=== PATIENT | female | born 1975 | race Two or more races ===

== ENCOUNTER 2017-06-04 17:30 | Outpatient (AMBR) | payer MEDICARE, MEDICAID, SELFPAY ==
--- NOTE | 2017-04-30 14:24 | PT.OIERPT ---
PT OP Initial Eval Patient Information Visit Reasons: BILATERAL CARPAL TUNNEL PAIN, Carpal tunnel syndrome Treatment Dx #1: B wrist pain Start of Care: 04/30/17 Date of Onset: 01/03/17 Initial Assessment Subjective Pt is 41 yr old divehi speaking female s/p B carpal tunnel sx in December of last year. She c/o L wrist numbness in the finger pads during the day and intense numbness at night. She no longer has the hand cramps and pain. The R hand is not near as numb as the L. Today she has the N/T in the L hand. 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 PLOF: pt has Hx of RA and finger deformities and about 3 yrs ago prior to wrist pain onset she had better use of hands and wrists with HH chores. PMH: Hypothyroidism, RA, anemia, peripheral neuropathy, B carpal tunnel Pt goal: less N/T of L wrist Objective L wrist AROM: Flexion: 55 deg Extension: 34 deg Radial dev: 25 deg Ulnar dev: 15 deg R breakfast host: 40 deg, L breakfast host 34 deg Assessment Pt presentation consistent with post op B carpal tunnel with hypertrophic scarring of L wrist incision that is likely impinging on median nerve. Numbness is in median n. distribution. Pt has limited digit and wrist ROM and strength due to RA deformities. Pt has fair rehab potential if incision can be mobilized to reduce numbness. Eval followed by [facility] and she was given foam ball for home use breakfast host strength. Short Term and Care Home Goals 1. Independent with HEP 2. Reduced N/T in L hand by 50% 3. Improved breakfast host strength to 45 lbs B Treatment Plan 90 day POC in order to complete visits. Pt requires skilled therapy in order to increase strength, decrease pain and address aforementioned impairments. Rx may consist of Therex, Manual therapy, Neuromuscular re-education, Modalities as indicated-moist heat packs, ice packs, estim Frequency and Duration 2x a week for 6 weeks Certification Dates: 04/30/17 to 07/29/17 Office Procedures PT Outpatient G-Codes Date of Service PT Date of Service: 04/30/17 G-Codes Changing & Maintaining Body Post Body Position Current Status G-Code: G8981: CK 40-60% Body Position Goal Status G-Code: G8982: CJ 20-40% PT Procedures PT Date of Service: 04/30/17 OP PT Eval High Complex 45 minutes: Yes Carpal Tunnel History of Present Illness Carpal Tunnel Imaging Result: No Data to Display
--- NOTE | 2017-04-30 14:32 | PTNOTE_ITS ---
PT OP Initial Eval Patient Information Visit Reasons: BILATERAL CARPAL TUNNEL PAIN, Carpal tunnel syndrome Treatment Dx #1: B wrist pain Start of Care: 04/30/17 Date of Onset: 01/03/17 Initial Assessment Subjective Pt is 41 yr old [place] speaking female s/p B carpal tunnel sx in December of last year. She c/o L wrist numbness in the finger pads during the day and intense numbness at night. She no longer has the hand cramps and pain. The R hand is not near as numb as the L. Today she has the N/T in the L hand. 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 PLOF: pt has Hx of RA and finger deformities and about 3 yrs ago prior to wrist pain onset she had better use of hands and wrists with HH chores. PMH: Hypothyroidism, RA, anemia, peripheral neuropathy, B carpal tunnel Pt goal: less N/T of L wrist Objective L wrist AROM: Flexion: 55 deg Extension: 34 deg Radial dev: 25 deg Ulnar dev: 15 deg R fine patcher: 40 deg, L fine patcher 34 deg Assessment Pt presentation consistent with post op B carpal tunnel with hypertrophic scarring of L wrist incision that is likely impinging on median nerve. Numbness is in median n. distribution. Pt has limited digit and wrist ROM and strength due to RA deformities. Pt has fair rehab potential if incision can be mobilized to reduce numbness. Eval followed by [facility] and she was given foam ball for home use fine patcher strength. Short Term and Penitentiary Goals 1. Independent with HEP 2. Reduced N/T in L hand by 50% 3. Improved fine patcher strength to 45 lbs B Treatment Plan 90 day POC in order to complete visits. Pt requires skilled therapy in order to increase strength, decrease pain and address aforementioned impairments. Rx may consist of Therex, Manual therapy, Neuromuscular re-education, Modalities as indicated-moist heat packs, ice packs, estim Frequency and Duration 2x a week for 6 weeks Certification Dates: 04/30/17 to 07/29/17 Office Procedures PT Outpatient G-Codes Date of Service PT Date of Service: 04/30/17 G-Codes Changing & Maintaining Body Post Body Position Current Status G-Code: G8981: CK 40-60% Body Position Goal Status G-Code: G8982: CJ 20-40% PT Procedures PT Date of Service: 04/30/17 OP PT Eval High Complex 45 minutes: Yes Carpal Tunnel History of Present Illness Carpal Tunnel Imaging Result: 2 No Data to Display
--- NOTE | 2017-05-15 18:11 | PT.ODAYNRPT ---
PT Outpatient Daily Note Date of Service: May 15, 2017 OP Daily Note Visit Reasons: BILATERAL CARPAL TUNNEL PAIN Outpatient Physical Therapy Treatment Date: 05/15/17 Subjective: Last night increased numbness and tingling in L hand Objective: See F/S for therex MT: STM to L incision x10' Assessment: L wrist flexion increases N/T in L hand as well as pressure over incision. Plan: Continue per POC Length of Time (minutes) of Treatment: 30 Minutes Office Procedures PT Outpatient G-Codes Date of Service PT Date of Service: 04/30/17 G-Codes Changing & Maintaining Body Post Body Position Current Status G-Code: G8981: CK 40-60% Body Position Goal Status G-Code: G8982: CJ 20-40% PT Procedures PT Date of Service: 04/30/17 OP PT Eval High Complex 45 minutes: Yes PT Procedures PT Date of Service: 05/15/17 Therapeutic Exercise 15 minutes: Yes Manual Acoustic Engineer 15 minutes: Yes
--- NOTE | 2017-05-20 18:16 | PTNOTE_ITS ---
PT Outpatient Daily Note Date of Service: May 20, 2017 OP Daily Note Visit Reasons: BILATERAL CARPAL TUNNEL PAIN Outpatient Physical Therapy Treatment Date: 05/20/17 Subjective: Decreased numbness and tingling in L hand since last visit Objective: See F/S for therex MT: STM to L incision x10' Assessment: L wrist flexion increases N/T in L hand as well as pressure over incision. Incision hypertrophy may be impinging median n. Plan: Continue per POC Length of Time (minutes) of Treatment: 30 Minutes Office Procedures PT Outpatient G-Codes Date of Service PT Date of Service: 04/30/17 G-Codes Changing & Maintaining Body Post Body Position Current Status G-Code: G8981: CK 40-60% Body Position Goal Status G-Code: G8982: CJ 20-40% PT Procedures PT Date of Service: 05/20/17 Therapeutic Exercise 15 minutes: Yes Manual Laminating Machine Operator 15 minutes: Yes PT Procedures PT Date of Service: 04/30/17 OP PT Eval High Complex 45 minutes: Yes PT Procedures PT Date of Service: 05/15/17 Therapeutic Exercise 15 minutes: Yes Manual Laminating Machine Operator 15 minutes: Yes
--- NOTE | 2017-06-04 18:57 | PT.ODAYNRPT ---
PT Outpatient Daily Note Date of Service: June 04, 2017 OP Daily Note Visit Reasons: BILATERAL CARPAL TUNNEL PAIN Outpatient Physical Therapy Treatment Date: 06/04/17 Subjective: Decreased numbness and tingling in L hand since last visit. Brings in order for B foot pain. Objective: See F/S for therex MT: STM to L/R incisions x10' Assessment: L wrist flexion increases N/T in L hand as well as pressure over incision. Incision hypertrophy may be impinging median n. Plan: Continue per POC Length of Time (minutes) of Treatment: 30 Minutes Office Procedures PT Outpatient G-Codes Date of Service PT Date of Service: 04/30/17 G-Codes Changing & Maintaining Body Post Body Position Current Status G-Code: G8981: CK 40-60% Body Position Goal Status G-Code: G8982: CJ 20-40% PT Procedures PT Date of Service: 05/20/17 Therapeutic Exercise 15 minutes: Yes Manual Oyster Culler 15 minutes: Yes PT Procedures PT Date of Service: 04/30/17 OP PT Eval High Complex 45 minutes: Yes PT Procedures PT Date of Service: 05/15/17 Therapeutic Exercise 15 minutes: Yes Manual Oyster Culler 15 minutes: Yes PT Procedures PT Date of Service: 06/04/17 Therapeutic Exercise 15 minutes: Yes Manual Oyster Culler 15 minutes: Yes
== END 2017-06-04 18:30 | disposition home or self-care (01) ==
PROVIDERS: PCP Physician Assistant; Referring Provider Physician Assistant; Visit Provider Internal Medicine Rheumatology
DX: I10 Essential (primary) hypertension (principal)
CPT/HCPCS: 97110; 97140; 97163; G8981; G8982

== ENCOUNTER → 2024-04-25 | Outpatient (CLI) | payer MEDICARE, MEDICAID, SELFPAY ==
--- NOTE | 2024-04-25 15:15 | XR_ITS ---
Examination: Screening digital mammography, bilateral Computer aided detection 3-D breast Tomosynthesis, bilateral Date and time of exam: April 25, 2024 at 1504 hours Compared to mammograms dating to April 09, 2017 Indication: Screening Technique: Nonmagnified MLO, CC views of the breasts to been obtained, reconstructed from 3-D Tomosynthesis images. R2 computer aided detection program utilized for evaluation of suspicious masses and/or abnormal calcifications. 3-D Tomosynthesis images obtained. Findings: Scattered areas of fibroglandular density. Benign calcifications. No interval suspicious masses Impression: BI-RADS category II: Benign Findings. Recommend 1 year follow-up mammogram.
== END | disposition home or self-care (01) ==
LOC: CDIM 14:56
PROVIDERS: Referring Provider Physician Assistant; Visit Provider Physician Assistant
DX: Z12.31 Encounter for screening mammogram for malignant neoplasm of breast (principal); R92.323 Mammographic fibroglandular density, bilateral breasts; R92.1 Mammographic calcification found on diagnostic imaging of breast
CPT/HCPCS: 77063; 77067